=== PATIENT | female | born 1965 | race Two or more races ===

== ENCOUNTER 2018-10-23 16:47 | Emergency (ER) | payer OTHER ==
[~2018-10-23] VITALS: Ht 157.5 cm; Wt 81.2 kg
== END 2018-10-23 18:08 | disposition home or self-care (01) ==
LOC: ER 16:47
DX: S81.821A Laceration with foreign body, right lower leg, initial encounter (principal); W18.41XA Slipping, tripping and stumbling without falling due to stepping on object, initial encounter; Y93.89 Activity, other specified; Y92.69 Other specified industrial and construction area as the place of occurrence of the external cause; Y99.8 Other external cause status

== ENCOUNTER 2022-06-26 14:19 | Emergency (ER) | payer OTHER ==
[~2022-06-26] VITALS: Ht 157.5 cm; Wt 78.0 kg
[2022-06-26] MEDS ORDERED: MONTELUKAST SODI4 M1 (14:48)
[2022-06-26] MEDS ORDERED: AMLODIPINE-OLM1 EAC2 (14:48)
[2022-06-26] MEDS ORDERED: TRELEGY ELLIPT1 EACH (14:48)
[2022-06-26] MEDS ORDERED: ATORVASTATIN CA10 MG PO (14:48)
== END 2022-06-26 18:20 | disposition home or self-care (01) ==
LOC: ER 14:19
DX: U07.1 COVID-19 (principal); I10 Essential (primary) hypertension